=== PATIENT | female | born 1995 | race Two or more races ===

== ENCOUNTER 2023-01-05 10:37 | Emergency (ER) | payer OTHER ==
[~2023-01-05] VITALS: Ht 157.5 cm; Wt 61.2 kg
[2023-01-05 11:55] LABS: URINE BACTERIA 6968.9 uL (0.0-1933); URINE RBC 304.5 uL (0.0-20.8); URINE WBC 190.6 uL (0.0-23.2)
[2023-01-05 11:58] LABS: PH,URINE 5.5 (5.0-8.0); URINE APPEARANCE Cloudy; URINE BILIRRUBIN Negative (NEGATIVE); URINE BLOOD Large; URINE COLOR Dark Yellow; URINE GLUCOSE Negative (NEGATIVE); URINE LEUKOCYTE Moderate; URINE NITRATE Negative; URINE PROTEIN 30 (NEGATIVE); URINE UROBILINOGEN 0.2 E.U./dl
[2023-01-05 12:03] LABS: HEMATOCRIT 40.1 % (36.0-45.00); HEMOGLOBIN 13.9 g/dL (12.0-15.00); MEAN CELL VOLUME 89.8 fL (80.00-100.00); MEAN CORPUSCULAR HGB CONC 34.6 g/dl (32.0-36.0); PLATELET COUNT 384 K/uL (150-450); RED BLOOD COUNT 4.47 M/uL (4.00-6.00); RED CELL DISTRIBUTION WIDTH 13.1 % (11.5-14.5)
[2023-01-05 12:13] LABS: URINE MUCUS SCANT
[2023-01-05 12:52] LABS: INR 0.98; PARTIAL THROMBOPLASTIN TIME 30.8 SECONDS (22.0-34.0); PROTHROMBIN TIME 10.3 SECONDS (9.0-11.5)
[2023-01-05 13:12] LABS: CALCIUM 9.3 mg/dL (8.5-10.1); CREATININE SERUM 0.62 mg/dL (0.55-1.02); GFR 116.35; POTASSIUM 3.55 mEq/L (3.5-5.1)
== END 2023-01-05 14:31 | disposition home or self-care (01) ==
LOC: ER 10:37
PROVIDERS: General Practice
DX: O20.8 Other hemorrhage in early pregnancy (principal); Z3A.01 Less than 8 weeks gestation of pregnancy

== ENCOUNTER 2023-01-25 20:06 | Emergency (ER) | payer OTHER ==
[~2023-01-25] VITALS: Ht 157.5 cm; Wt 59.4 kg
[2023-01-25 21:54] LABS: HEMATOCRIT 37.8 % (36.0-45.00); HEMOGLOBIN 13.2 g/dL (12.0-15.00); MEAN CELL VOLUME 89.5 fL (80.00-100.00); MEAN CORPUSCULAR HEMOGLOBIN 31.2 pg (27.00-32.0); MEAN CORPUSCULAR HGB CONC 34.9 g/dl (32.0-36.0); PLATELET COUNT 406 K/uL (150-450); RED BLOOD COUNT 4.23 M/uL (4.00-6.00); RED CELL DISTRIBUTION WIDTH 12.7 % (11.5-14.5)
[2023-01-26 00:03] LABS: PH,URINE 6.5 (5.0-8.0); URINE APPEARANCE Clear; URINE BILIRRUBIN Negative (NEGATIVE); URINE BLOOD Large; URINE COLOR Orange; URINE GLUCOSE Negative (NEGATIVE); URINE LEUKOCYTE Small; URINE NITRATE Negative; URINE PROTEIN 30 (NEGATIVE); URINE UROBILINOGEN 0.2 E.U./dl
[2023-01-26 00:07] LABS: URINE BACTERIA 157.4 uL (0.0-1933); URINE EPITHELIAL CELLS 9.7 uL (0.0-38.8); URINE RBC 156.5 uL (0.0-20.8); URINE WBC 41.3 uL (0.0-23.2)
== END 2023-01-26 00:52 | disposition home or self-care (01) ==
LOC: ER 20:06
PROVIDERS: General Practice
DX: O20.9 Hemorrhage in early pregnancy, unspecified (principal); O43.891 Other placental disorders, first trimester; Z3A.10 10 weeks gestation of pregnancy

== ENCOUNTER 2023-06-10 11:50 | Inpatient (IN) | payer OTHER ==
[~2023-06-10] VITALS: Ht 157.5 cm; Wt 65.3 kg
[2023-06-10] MEDS ORDERED: PRENATAL CAPLE1 EAC1 PO (13:22)
[2023-06-10] MEDS ORDERED: NIFEDIPINE 20 MG CAPSULE PO ONE (13:30)
[2023-06-10] MEDS ORDERED: BETAMETHASONE ACETATE,SOD PHOS 30 MG/5 ML ML IM ONE (13:30)
[2023-06-10 13:34] LABS: HEMATOCRIT 33.7 % (36.0-45.00); HEMOGLOBIN 11.6 g/dL (12.0-15.00); MEAN CORPUSCULAR HEMOGLOBIN 32.4 pg (27.00-32.0); MEAN CORPUSCULAR HGB CONC 34.4 g/dl (32.0-36.0); PLATELET COUNT 367 K/uL (150-450); RED BLOOD COUNT 3.59 M/uL (4.00-6.00); RED CELL DISTRIBUTION WIDTH 12.7 % (11.5-14.5)
[2023-06-10 13:45] LABS: CALCIUM 8.9 mg/dL (8.5-10.1); CREATININE SERUM 0.42 mg/dL (0.55-1.02); GFR 182.38; POTASSIUM 4.25 mEq/L (3.5-5.1)
[2023-06-10 13:51] LABS: INR < 0.93; PARTIAL THROMBOPLASTIN TIME 28.5 SECONDS (22.0-34.0); PROTHROMBIN TIME 9.8 SECONDS (9.0-11.5)
[2023-06-10 13:58] LABS: URINE APPEARANCE Clear; URINE BILIRRUBIN Negative (NEGATIVE); URINE BLOOD Negative; URINE COLOR Yellow; URINE GLUCOSE Negative (NEGATIVE); URINE LEUKOCYTE Negative; URINE NITRATE Negative; URINE PROTEIN Negative (NEGATIVE); URINE UROBILINOGEN 0.2 E.U./dl
[2023-06-10 14:02] LABS: URINE BACTERIA 162.4 uL (0.0-1933); URINE EPITHELIAL CELLS 6.6 uL (0.0-38.8); URINE RBC 7.4 uL (0.0-20.8); URINE WBC 6.7 uL (0.0-23.2)
[2023-06-10] MEDS ORDERED: NIFEDIPINE 10 MG CAPSULE PO SCH (17:00)
[2023-06-11] MEDS ORDERED: BETAMETHASONE ACETATE,SOD PHOS 30 MG/5 ML ML ONE (13:20)
[2023-06-11] MEDS ORDERED: BETAMETHASONE ACETATE,SOD PHOS 30 MG/5 ML ML IM ONE (13:30)
[2023-06-11] MEDS ORDERED: FF) RHO(D) IMMUNE GLOBULIN (POM) IM ONE (20:00)
[2023-06-11] MEDS ORDERED: ** NF ** (PROGESTERONA 200 MG) VAG SCH (23:15)
[2023-06-12] MEDS ORDERED: PNV,CALCIUM 72/IRON/FOLIC ACID 1 TAB TABLET PO SCH (09:00)
[2023-06-12] MEDS ORDERED: NIFEDIPINE 30 MG TAB.SA.OSM PO SCH (11:51)
[2023-06-12] MEDS ORDERED: PATIENTS OWN MEDICATION (MEDICAMENTO EN PISO) VAG SCH (21:00)
== END 2023-06-14 10:04 | disposition home or self-care (01) | DRG 833 ==
LOC: LDR 11:50 → OB/GYN 06-12 11:58
PROVIDERS: ADMIT Obstetrics & Gynecology; ATTEND Obstetrics & Gynecology
PROC: 4A1HXCZ Monitoring of Products of Conception, Cardiac Rate, External Approach (ICD-10-PCS; principal; 2023-06-10)
PROC: BY4CZZZ Ultrasonography of Second Trimester, Single Fetus (ICD-10-PCS; 2023-06-10)
DX: O47.03 False labor before 37 completed weeks of gestation, third trimester (principal); O36.8130 Decreased fetal movements, third trimester, not applicable or unspecified; O26.843 Uterine size-date discrepancy, third trimester; Z3A.29 29 weeks gestation of pregnancy; Z20.822 Contact with and (suspected) exposure to COVID-19

== ENCOUNTER 2023-06-25 02:01 | Outpatient (CLI) | payer OTHER ==
[~2023-06-25 02:01] MED LIST: PRENATAL CAPLE1 EAC1 PO
[2023-06-25] MEDS ORDERED: PROMETRIUM200 MG VAG (02:07)
[2023-06-25] MEDS ORDERED: DUI500 PO (02:09)
[2023-06-25] MEDS ORDERED: RINGERS SOLUTION,LACTATED 1,000 ML IV SCH (02:15)
[2023-06-25 02:35] LABS: URINE APPEARANCE Turbid; URINE BILIRRUBIN Negative (NEGATIVE); URINE BLOOD Negative; URINE COLOR Yellow; URINE GLUCOSE Negative (NEGATIVE); URINE LEUKOCYTE Moderate; URINE NITRATE Negative; URINE PROTEIN Negative (NEGATIVE); URINE UROBILINOGEN 0.2 E.U./dl
[2023-06-25 02:36] LABS: HEMATOCRIT 32.5 % (36.0-45.00); MEAN CELL VOLUME 93.7 fL (80.00-100.00); MEAN CORPUSCULAR HEMOGLOBIN 31.6 pg (27.00-32.0); MEAN CORPUSCULAR HGB CONC 33.8 g/dl (32.0-36.0); PLATELET COUNT 380 K/uL (150-450); RED BLOOD COUNT 3.47 M/uL (4.00-6.00); RED CELL DISTRIBUTION WIDTH 13.3 % (11.5-14.5)
[2023-06-25 02:38] LABS: URINE BACTERIA 1877.3 uL (0.0-1933); URINE RBC 123.8 uL (0.0-20.8); URINE WBC 94.9 uL (0.0-23.2)
[2023-06-25 03:36] LABS: URINE CRYSTALS MODERATE /HPF
== END 2023-06-25 10:27 | disposition home or self-care (01) ==
LOC: OBS/DEL 02:01
PROVIDERS: Specialist; ATTEND Obstetrics & Gynecology
DX: O23.43 Unspecified infection of urinary tract in pregnancy, third trimester (principal); N39.0 Urinary tract infection, site not specified; Z3A.31 31 weeks gestation of pregnancy

== ENCOUNTER 2023-07-09 15:07 | Outpatient (CLI) | payer OTHER ==
[~2023-07-09] VITALS: Ht 157.5 cm; Wt 65.3 kg
[~2023-07-09 15:07] MED LIST changes: +DUI500 PO; +PROMETRIUM200 MG VAG
[2023-07-09] MEDS ORDERED: RINGERS SOLUTION,LACTATED 1,000 ML IV SCH (15:30)
[2023-07-09 16:24] LABS: URINE APPEARANCE Clear; URINE BILIRRUBIN Negative (NEGATIVE); URINE BLOOD Negative; URINE COLOR Yellow; URINE GLUCOSE Negative (NEGATIVE); URINE LEUKOCYTE Trace; URINE NITRATE Negative; URINE PROTEIN Negative (NEGATIVE); URINE UROBILINOGEN 0.2 E.U./dl
[2023-07-09 16:25] LABS: URINE BACTERIA 429.5 uL (0.0-1933); URINE EPITHELIAL CELLS 8.3 uL (0.0-38.8); URINE RBC 6.8 uL (0.0-20.8); URINE WBC 14.2 uL (0.0-23.2)
[2023-07-09 16:36] LABS: HEMOGLOBIN 11.3 g/dL (12.0-15.00); MEAN CELL VOLUME 92.8 fL (80.00-100.00); MEAN CORPUSCULAR HEMOGLOBIN 31.8 pg (27.00-32.0); MEAN CORPUSCULAR HGB CONC 34.2 g/dl (32.0-36.0); PLATELET COUNT 369 K/uL (150-450); RED BLOOD COUNT 3.56 M/uL (4.00-6.00); RED CELL DISTRIBUTION WIDTH 13.3 % (11.5-14.5)
== END 2023-07-10 12:45 | disposition home or self-care (01) ==
LOC: OBS/DEL 15:07
PROVIDERS: Obstetrics & Gynecology; ATTEND Obstetrics & Gynecology
DX: O26.893 Other specified pregnancy related conditions, third trimester (principal); Z3A.34 34 weeks gestation of pregnancy; O26.849 Uterine size-date discrepancy, unspecified trimester; O36.8199 Decreased fetal movements, unspecified trimester, other fetus; O60.00 Preterm labor without delivery, unspecified trimester